=== PATIENT | female | born 1940 | race African-American/Black ===

== ENCOUNTER → 2016-09-20 | Outpatient (CLI) | payer MEDICARE, MEDICAID ==
[~2016-09-20] MED LIST: ASPI-1073 PO; FURO-151 PO; KDUR10 PO; METF500T4 PO; OMEP20TA80 PO; OXYC-102 PO; PLENDIL PO; PRAV20TA57 PO
== END | disposition home or self-care (01) ==
LOC: MRI 09:28
PROVIDERS: ATTEND Neurological Surgery
DX: M48.06 Spinal stenosis, lumbar region (principal); M43.16 Spondylolisthesis, lumbar region; M51.26 Other intervertebral disc displacement, lumbar region; M51.24 Other intervertebral disc displacement, thoracic region; M51.27 Other intervertebral disc displacement, lumbosacral region
CPT/HCPCS: 72148

== ENCOUNTER 2018-07-30 06:08 | Inpatient (IN) | payer MEDICARE, MEDICAID ==
[2018-07-30] VITALS (7 sets, daily range): BP systolic 135–157; BP diastolic 65–75
[~2018-07-30] VITALS: Ht 154.9 cm; Wt 79.9 kg
[~2018-07-30 06:08] MED LIST changes: +METF-414 PO; -METF500T4 PO; +OMEP20TA2 PO; -OMEP20TA80 PO
[2018-07-30 07:16] LABS: HEMATOCRIT 38.1 % (36.0-48.0); HEMOGLOBIN 12.7 g/dL (12.0-16.0); MEAN CORPUSCULAR HEMOGLOBIN 29.1 pg (28.0-32.0); MEAN CORPUSCULAR VOLUME 87.2 fL (81.0-99.0); PLATELET 199 x1000/uL (130-400); RED BLOOD CELL COUNT 4.37 mill/uL (4.2-5.4)
[2018-07-30 07:22] LABS: CHLORIDE 106 mEq/L (98-107)
[2018-07-30 07:25] LABS: PARTIAL THROMBOPLASTIN TIME 29.9 sec (23.4-31.0); PROTHROMBIN TIME 10.5 sec (9.6-11.0)
[2018-07-30] MEDS ORDERED: LIDOCAINE HCL 1% 20ML VIAL (Pyxis) INJ ONE (07:43)
[2018-07-30] MEDS ORDERED: IOHEXOL-300 100 ML BOTTLE ONE (07:43)
[2018-07-30] MEDS ORDERED: GENTAMICIN SULF 40MG/ML 2ML VIAL ONE (07:43)
[2018-07-30] MEDS ORDERED: GENTAMICIN/NS IRRIGATION 500 ML IR ONE (07:44)
[2018-07-30] MEDS ORDERED: MONT10TA24 MT (07:47)
[2018-07-30] MEDS ORDERED: FLUT1DIS3 INH (07:47)
[2018-07-30] MEDS ORDERED: DIGO125T82 MT (07:47)
[2018-07-30] MEDS ORDERED: POTA25TA8 MT (07:47)
[2018-07-30] MEDS ORDERED: OLME20TA22 MT (07:47)
[2018-07-30] MEDS ORDERED: TRAM50TA3 MT (07:47)
[2018-07-30] MEDS ORDERED: APIX2.5T PO (07:47)
[2018-07-30] MEDS ORDERED: DILT180T11 MT (07:47)
[2018-07-30] MEDS ORDERED: EPINEPHRINE 4 MG in DEXT 5% WATER 250 ML IV PRN (08:15)
[2018-07-30] MEDS ORDERED: DOBUTAMINE 250MG PREMIX 250ML IV PRN (08:15)
[2018-07-30] MEDS ORDERED: PROPOFOL 10MG/ML 100ML 100 ML IV ONE (08:17)
[2018-07-30] MEDS ORDERED: MIDAZOLAM HCL 2 MG/2 ML VIAL ONE (08:40)
[2018-07-30] MEDS ORDERED: FENTANYL CITRATE/PF 50MCG/ML 2ML VIAL ONE (08:51)
[2018-07-30] MEDS ORDERED: APIXABAN 2.5 MG TABLET PO SCH (09:00)
[2018-07-30] MEDS ORDERED: HYDROCODONE/ACETAMINOPHEN 5/325MG TABLET PO PRN (10:30)
[2018-07-30] MEDS ORDERED: ONDANSETRON HCL 4MG/2ML INJ IV PRN (11:00)
[2018-07-30] MEDS ORDERED: KETOROLAC 15MG/ML VIAL IV PRN (11:00)
[2018-07-30] MEDS ORDERED: HYDROMORPHONE HCL/PF 2MG/ML CPJ IV PRN (11:00)
[2018-07-30] MEDS ORDERED: ACETAMINOPHEN 500MG TABLET PO SCH (14:00)
[2018-07-30] MEDS: OMEPRAZOLE 20MG CAPSULE EXTENDED RELEASE PO SCH (15:20)
[2018-07-30] MEDS: MONTELUKAST SODIUM 10MG TABLET PO SCH (15:20)
[2018-07-30] MEDS: DILTIAZEM HCL 180MG CAPSULE CD 24HR PO SCH (15:21)
[2018-07-30] MEDS: FUROSEMIDE 40MG TABLET PO SCH (15:21)
[2018-07-30] MEDS: LOSARTAN POTASSIUM 50 MG TABLET PO SCH (15:21)
[2018-07-30] MEDS: TRAMADOL HCL/ACETAMINOPHEN 37.5/325MG TABLET PO PRN ×2 (15:57→23:54)
[2018-07-30] MEDS: CEFAZOLIN 1000MG PREMIX 50 ML IV SCH (17:56)
[2018-07-30] MEDS: APIXABAN 5 MG TABLET PO SCH (17:56)
[2018-07-30] MEDS ORDERED: DIGOXIN 125MCG TABLET PO SCH (18:00)
[2018-07-31] VITALS (7 sets, daily range): BP systolic 134–162; BP diastolic 59–82
[2018-07-31] MEDS: CEFAZOLIN 1000MG PREMIX 50 ML IV SCH (00:54)
[2018-07-31] MEDS: OMEPRAZOLE 20MG CAPSULE EXTENDED RELEASE PO SCH (06:22)
[2018-07-31 06:46] LABS: CHLORIDE 107 mEq/L (98-107)
[2018-07-31 06:47] LABS: BASOPHILS % 0.2 % (0.0-2.0); HEMATOCRIT. 35.2 % (36.0-48.0); HEMOGLOBIN. 11.9 g/dL (12.0-16.0); LYMPHOCYTES % 37.8 % (20.0-50.0); MEAN CORPUSCULAR HEMOGLOBIN 29.4 pg (28.0-32.0); MEAN PLATELET VOLUME 9.6 fl (7.4-10.4); PLATELET 180 x1000/uL (130-400); RED BLOOD CELL COUNT 4.05 mill/uL (4.2-5.4); RED CELL DISTRIBUTION WIDTH 14.9 % (11.6-14.6)
[2018-07-31] MEDS ORDERED: IPRATROPIUM/ALBUTEROL 0.5-3(2.5)MG/3ML NEB HHN PRN (08:45)
[2018-07-31] MEDS ORDERED: POLYETHYLENE GLYCOL 3350 (17GM) 1 DOSE PACK PO SCH (09:00)
[2018-07-31] MEDS: DILTIAZEM HCL 180MG CAPSULE CD 24HR PO SCH (09:15)
[2018-07-31] MEDS: APIXABAN 5 MG TABLET PO SCH (09:16)
[2018-07-31] MEDS: FUROSEMIDE 40MG TABLET PO SCH (09:16)
[2018-07-31] MEDS: MONTELUKAST SODIUM 10MG TABLET PO SCH (09:16)
[2018-07-31] MEDS: LOSARTAN POTASSIUM 50 MG TABLET PO SCH (09:17)
[2018-07-31] MEDS ORDERED: IPRATROPIUM/ALBUTEROL 0.5-3(2.5)MG/3ML NEB HHN SCH (12:00)
[2018-08-01] MEDS ORDERED: FAMOTIDINE 20MG TABLET PO SCH (09:00)
== END 2018-07-31 11:55 | disposition home health service (06) | DRG 244 ==
LOC: OR 06:08 → 3WST 06:09
PROVIDERS: ADMIT Internal Medicine Clinical Cardiac Electrophysiology; ATTEND Internal Medicine Clinical Cardiac Electrophysiology
PROC: 0JH606Z Insertion of Pacemaker, Dual Chamber into Chest Subcutaneous Tissue and Fascia, Open Approach (ICD-10-PCS; principal; 2018-07-30)
PROC: 02H73JZ Insertion of Pacemaker Lead into Left Atrium, Percutaneous Approach (ICD-10-PCS; 2018-07-30)
PROC: 02HL3JZ Insertion of Pacemaker Lead into Left Ventricle, Percutaneous Approach (ICD-10-PCS; 2018-07-30)
PROC: B5171ZZ Fluoroscopy of Left Subclavian Vein using Low Osmolar Contrast (ICD-10-PCS; 2018-07-30)
DX: I49.5 Sick sinus syndrome (principal); F41.1 Generalized anxiety disorder; I10 Essential (primary) hypertension; E78.00 Pure hypercholesterolemia, unspecified; H40.9 Unspecified glaucoma; J45.909 Unspecified asthma, uncomplicated; I25.10 Atherosclerotic heart disease of native coronary artery without angina pectoris; E11.319 Type 2 diabetes mellitus with unspecified diabetic retinopathy without macular edema; J44.9 Chronic obstructive pulmonary disease, unspecified; M48.00 Spinal stenosis, site unspecified; K59.09 Other constipation; D64.9 Anemia, unspecified; E78.5 Hyperlipidemia, unspecified; K21.9 Gastro-esophageal reflux disease without esophagitis; Z79.4 Long term (current) use of insulin; Z98.61 Coronary angioplasty status
CPT/HCPCS: 33208; 36415; 71045; 75820; 80048; 85027; 93005; 97162; C1785; C1892; C1893; C1898; J0690; J1170; J1580; J2250; J2704; J3010; J3490; J7050; J7620; Q9967

== ENCOUNTER 2021-10-27 09:43 | Inpatient (IN) | payer MEDICARE, MEDICAID ==
[~2021-10-27] VITALS: Ht 156.2 cm; Wt 85.3 kg
[2021-10-27] MEDS: IPRATROPIUM/ALBUTEROL 0.5-3(2.5)MG/3ML NEB HHN SCH ×3 (00:52→20:44)
[~2021-10-27 09:43] MED LIST changes: +APIX2.5T PO; -ASPI-1073 PO; +DIGO125T80 MT; +DILT180T11 MT; +FLUT1DIS3 INH; -KDUR10 PO; +MONT-39 MT; +OLME20TA22 MT; -OMEP20TA2 PO; +OMEP20TA23 PO; -OXYC-102 PO; -PLENDIL PO; +POTA25TA8 MT; +TRAM50TA3 MT
[2021-10-27 10:57] LABS: BASOPHILS % 0.5 % (0.0-2.0); EOSINOPHILS % 0.8 % (0.0-5.0); HEMATOCRIT. 39.9 % (36.0-48.0); HEMOGLOBIN. 13.9 g/dL (12.0-16.0); LYMPHOCYTES % 22.8 % (20.0-50.0); MEAN CORPUSCULAR HEMOGLOBIN 30.5 pg (28.0-32.0); MEAN CORPUSCULAR VOLUME 87.5 fL (81.0-99.0); MEAN PLATELET VOLUME 8.7 fl (7.4-10.4); MONOCYTES % 8.4 % (2.0-8.0); NEUTROPHILS % 67.5 % (40.0-76.0); PLATELET 239 x1000/uL (130-400); RED BLOOD CELL COUNT 4.56 mill/uL (4.2-5.4)
[2021-10-27 11:04] LABS: CHLORIDE 104 mEq/L (98-107)
[2021-10-27 11:24] LABS: ETHANOL BLOOD < 10 mg/dL
[2021-10-27] MEDS ORDERED: ACETAMINOPHEN 325MG TABLET PO PRN (13:45)
[2021-10-27] MEDS ORDERED: ONDANSETRON HCL 4MG/2ML INJ IV PRN (13:45)
[2021-10-27] MEDS ORDERED: ZOLPIDEM TARTRATE 5MG TABLET PO PRN (13:45)
[2021-10-27] MEDS ORDERED: DEXTROSE 50% WATER 50ML SYRINGE IV PRN (13:45)
[2021-10-27] MEDS ORDERED: CLONIDINE 0.1MG TABLET PO PRN (13:45)
[2021-10-27 14:45] LABS: CREATINE KINASE MB FRACTION < 1.0 ng/mL (0.5-3.6)
[2021-10-27 14:56] LABS: DIGOXIN 0.2 ng/mL (0.9-2.0)
[2021-10-27] MEDS: DILTIAZEM HCL 60MG TABLET PO SCH ×2 (16:24→20:13)
[2021-10-27 17:15] VITALS: BP 135/68
[2021-10-27 17:21] VITALS: BP 135/68
[2021-10-27] MEDS: APIXABAN 5 MG TABLET PO SCH (18:00)
[2021-10-27] MEDS ORDERED: POTA-205 PO (18:06)
[2021-10-27 20:00] VITALS: BP 151/57
[2021-10-27] MEDS: FAMOTIDINE 20MG TABLET PO SCH (20:13)
[2021-10-28] VITALS: BP 118/52
[2021-10-28 00:23] LABS: CREATINE KINASE MB FRACTION < 1.0 ng/mL (0.5-3.6)
[2021-10-28] MEDS: DILTIAZEM HCL 60MG TABLET PO SCH ×4 (02:29→20:45)
[2021-10-28 04:00] VITALS: BP 133/52
[2021-10-28] MEDS: IPRATROPIUM/ALBUTEROL 0.5-3(2.5)MG/3ML NEB HHN SCH ×5 (04:57→21:33)
[2021-10-28 08:00] VITALS: BP 131/65
[2021-10-28 09:17] LABS: CHLORIDE 104 mEq/L (98-107)
[2021-10-28 09:25] LABS: BASOPHILS % 0.3 % (0.0-2.0); EOSINOPHILS % 2.9 % (0.0-5.0); HEMATOCRIT. 38.2 % (36.0-48.0); HEMOGLOBIN. 13.1 g/dL (12.0-16.0); LYMPHOCYTES % 29.6 % (20.0-50.0); MEAN CORPUSCULAR HEMOGLOBIN 30.2 pg (28.0-32.0); MEAN CORPUSCULAR VOLUME 87.9 fL (81.0-99.0); MEAN PLATELET VOLUME 9.3 fl (7.4-10.4); MONOCYTES % 9.6 % (2.0-8.0); NEUTROPHILS % 57.6 % (40.0-76.0); PLATELET 222 x1000/uL (130-400); RED BLOOD CELL COUNT 4.35 mill/uL (4.2-5.4)
[2021-10-28 09:28] LABS: HDL CHOLESTEROL 61 mg/dL (40-59); LDL CHOLESTEROL 71 mg/dL (5-100)
[2021-10-28] MEDS: DOCUSATE SODIUM 250MG CAPSULE PO SCH (09:28)
[2021-10-28] MEDS: APIXABAN 5 MG TABLET PO SCH ×2 (09:28→18:27)
[2021-10-28 12:00] VITALS: BP 124/50
[2021-10-28] MEDS ORDERED: DORZ10DR8 EACHEYE (12:20)
[2021-10-28] MEDS ORDERED: BIMA2.5D4 EACHEYE (12:20)
[2021-10-28] MEDS ORDERED: NON FORMULARY PATIENT HOME MED OP SCH (12:30)
[2021-10-28 15:59] VITALS: BP 135/64
[2021-10-28] MEDS: DORZOLAMIDE 2% OPHTH 10 ML BOTTLE BOTHEYE SCH ×2 (16:01→22:36)
[2021-10-28 20:00] VITALS: BP 147/64
[2021-10-28] MEDS: FAMOTIDINE 20MG TABLET PO SCH (20:45)
[2021-10-28] MEDS ORDERED: LATANOPROST 0.005% OPHTH DROPS 2.5ML BOTHEYE SCH (21:00)
[2021-10-29] VITALS: BP 150/69
[2021-10-29] MEDS: IPRATROPIUM/ALBUTEROL 0.5-3(2.5)MG/3ML NEB HHN SCH ×3 (01:17→12:07)
[2021-10-29] MEDS: DILTIAZEM HCL 60MG TABLET PO SCH ×2 (03:43→09:34)
[2021-10-29 04:00] VITALS: BP 142/64
[2021-10-29] MEDS: APIXABAN 5 MG TABLET PO SCH (05:31)
[2021-10-29] MEDS: DORZOLAMIDE 2% OPHTH 10 ML BOTTLE BOTHEYE SCH (05:36)
[2021-10-29 07:16] LABS: BASOPHILS % 0.4 % (0.0-2.0); EOSINOPHILS % 2.5 % (0.0-5.0); HEMATOCRIT. 37.7 % (36.0-48.0); HEMOGLOBIN. 12.5 g/dL (12.0-16.0); MEAN CORPUSCULAR HEMOGLOBIN 29.4 pg (28.0-32.0); MEAN CORPUSCULAR VOLUME 88.6 fL (81.0-99.0); MONOCYTES % 10.5 % (2.0-8.0); NEUTROPHILS % 60.6 % (40.0-76.0); PLATELET 223 x1000/uL (130-400); RED BLOOD CELL COUNT 4.25 mill/uL (4.2-5.4); RED CELL DISTRIBUTION WIDTH 14.2 % (11.6-14.6)
[2021-10-29 07:38] LABS: CHLORIDE 108 mEq/L (98-107)
[2021-10-29 08:00] VITALS: BP 122/47
[2021-10-29] MEDS: DOCUSATE SODIUM 250MG CAPSULE PO SCH (09:34)
[2021-10-29 11:06] VITALS: BP 122/47
[2021-10-29 12:00] VITALS: BP 139/64
[2021-10-29] MEDS ORDERED: APIXABAN 2.5 MG TABLET PO SCH (18:00)
[2021-10-30 13:06] LABS: A/G RATIO 0.8 (0.7-1.7); ALBUMIN 3.1 g/dL (2.9-4.4); ALPHA-1-GLOBULIN 0.3 g/dL (0.0-0.4); ALPHA-2-GLOBULIN 1.1 g/dL (0.4-1.0); BETA GLOBULIN 1.3 g/dL (0.7-1.3); GAMMA GLOBULINS 1.4 g/dL (0.4-1.8); GLOBULIN TOTAL 4.1 g/dL (2.2-3.9); M-SPIKE Not Observed g/dL (Not Observed); TOTAL PROTEIN SERUM 7.2 g/dL (6.0-8.5)
== END 2021-10-29 14:30 | disposition home or self-care (01) | DRG 310 ==
LOC: ER 10:57 → EDBEDREQ 15:00 → ENRESERV 15:30 → 6WST 16:47
PROVIDERS: ADMIT Internal Medicine Geriatric Medicine; ATTEND Internal Medicine Geriatric Medicine
PROC: 4B02XSZ Measurement of Cardiac Pacemaker, External Approach (ICD-10-PCS; principal; 2021-10-28)
DX: I48.19 Other persistent atrial fibrillation (principal); I49.5 Sick sinus syndrome; I48.92 Unspecified atrial flutter; E78.5 Hyperlipidemia, unspecified; J44.9 Chronic obstructive pulmonary disease, unspecified; M48.00 Spinal stenosis, site unspecified; I11.9 Hypertensive heart disease without heart failure; K59.04 Chronic idiopathic constipation; K21.9 Gastro-esophageal reflux disease without esophagitis; I25.10 Atherosclerotic heart disease of native coronary artery without angina pectoris; E11.65 Type 2 diabetes mellitus with hyperglycemia; M15.9 Polyosteoarthritis, unspecified; F41.9 Anxiety disorder, unspecified; Z79.899 Other long term (current) drug therapy; Z90.710 Acquired absence of both cervix and uterus; Z95.0 Presence of cardiac pacemaker; Z79.01 Long term (current) use of anticoagulants; Z82.49 Family history of ischemic heart disease and other diseases of the circulatory system
CPT/HCPCS: 36415; 71045; 80048; 80053; 80061; 80162; 80320; 82553; 83036; 83735; 83880; 84155; 84165; 84443; 84484; 85025; 93005; 93306; 93970; 94640; 94664; 99285; G0480

== ENCOUNTER 2021-12-28 11:32 | Emergency (ER) | payer MEDICARE, MEDICAID ==
[~2021-12-28] VITALS: Ht 167.6 cm; Wt 91.0 kg
[~2021-12-28 11:32] MED LIST changes: +BIMA2.5D4 EACHEYE; +DORZ10DR8 EACHEYE; +POTA-205 PO
[2021-12-28] MEDS ORDERED: SODIUM CHLORIDE 0.9% 1,000 ML IV ONE (12:45)
[2021-12-28 14:10] LABS: BASOPHILS % 0.4 % (0.0-2.0); EOSINOPHILS % 1.5 % (0.0-5.0); HEMATOCRIT. 42.5 % (36.0-48.0); HEMOGLOBIN. 14.4 g/dL (12.0-16.0); LYMPHOCYTES % 25.3 % (20.0-50.0); MEAN CORPUSCULAR HEMOGLOBIN 29.5 pg (28.0-32.0); MEAN CORPUSCULAR VOLUME 87.3 fL (81.0-99.0); MEAN PLATELET VOLUME 9.8 fl (7.4-10.4); MONOCYTES % 7.2 % (2.0-8.0); NEUTROPHILS % 65.6 % (40.0-76.0); PLATELET 224 x1000/uL (130-400); RED BLOOD CELL COUNT 4.87 mill/uL (4.2-5.4); RED CELL DISTRIBUTION WIDTH 14.7 % (11.6-14.6)
[2021-12-28 14:16] LABS: CHLORIDE 104 mEq/L (98-107)
[2021-12-28 14:30] LABS: PROTHROMBIN TIME 11.1 sec (9.6-11.0)
[2021-12-28 14:47] VITALS: BP 150/71
[2021-12-28 16:21] LABS: COLOR URINE YELLOW (YELLOW)
[2021-12-28 16:22] LABS: CLARITY URINE CLEAR (CLEAR); LEUKOCYTE ESTERASE URINE NEGATIVE (NEGATIVE); NITRITE URINE NEGATIVE (NEGATIVE); UROBILINOGEN URINE 0.2 E.U./dL (0.2-1.0)
[2021-12-28 16:23] LABS: KETONES URINE NEGATIVE (NEGATIVE); PROTEIN URINE TRACE (NEGATIVE); SPECIFIC GRAVITY URINE 1.015 (1.005-1.030)
[2021-12-28 16:24] LABS: OCCULT BLOOD URINE 1+ (NEGATIVE)
[2021-12-28] MEDS ORDERED: TRAM50TA3 MT (17:18)
== END 2021-12-28 17:38 | disposition home or self-care (01) ==
LOC: ER 11:32
DX: R53.1 Weakness (principal); I48.91 Unspecified atrial fibrillation; E11.9 Type 2 diabetes mellitus without complications; J44.9 Chronic obstructive pulmonary disease, unspecified; I25.10 Atherosclerotic heart disease of native coronary artery without angina pectoris; M19.90 Unspecified osteoarthritis, unspecified site; F41.9 Anxiety disorder, unspecified; I10 Essential (primary) hypertension; J40 Bronchitis, not specified as acute or chronic; E78.5 Hyperlipidemia, unspecified; Z95.0 Presence of cardiac pacemaker; Z98.61 Coronary angioplasty status; Z90.710 Acquired absence of both cervix and uterus
CPT/HCPCS: 36415; 71045; 80053; 81003; 83690; 84484; 85025; 85610; 93005; 96360; 99285; J7030